=== PATIENT | male | born 1985 | race Caucasian/White ===

== ENCOUNTER 2021-06-27 11:28 | Emergency (ER) | payer SELFPAY ==
[~2021-06-27] VITALS: Ht 180.3 cm; Wt 86.0 kg
[2021-06-27] MEDS ORDERED: LIDOCAINE/EPI/TETRACAINE TOPICAL GEL 3 ML. TP ONE (14:17)
[2021-06-27 14:23] VITALS: BP 123/82
[2021-06-27] MEDS ORDERED: LIDOCAINE 2% 20 ML VIAL. IJ ONE (14:30)
[2021-06-27] MEDS ORDERED: DIPH,PERTUSS(ACELL),TET VAC/PF 0.5 ML SYRINGE. VAX IM ONE (15:00)
--- NOTE | 2021-06-27 15:14 | RAD ---
Three views Left finger: Clinical History: Reason: LACERATION WITH TABLE SAW Technique: AP view of the hand, as well as lateral and oblique collimated views of the middle finger were obtained. Comparison: None. Findings: There is a mildly distracted fracture obliquely through the tuft of the middle finger. There is no ra diopaque foreign body. There are a few small distracted bony fragments. Remaining visualized osseous structures appear normal. Impression: Acute distracted fracture of the tuft of the middle finger with multiple tiny fragments. Electronically signed by: Rik Hairston III, MD (06/27/2021 3:12 PM) [facility]
[2021-06-27] MEDS ORDERED: CEPH500C PO (16:21)
[2021-06-27] MEDS ORDERED: HYDR-2155 PO (16:21)
--- NOTE | 2021-06-27 16:22 | PHYS DOC ---
Past History Past Medical History: No Pertinent History Past Surgical History: No Surgical History Smoking: Cigarettes, Greater than 1 pack/day Alcohol Use: None General Adult EDM: Chief Complaint: LACERATION/AVULSION HPI: HPI: Is a 35-year-old male that presents today with a laceration to left third finger. Patient states today he was working at home and was using a table saw and his finger got in the way of the sought self and he said he tried to jerk a way fast enough but was unable to do so. No uncontrolled hemorrhaging noted. Patient states last tetanus shot was greater than 15 years ago. 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 Review of Systems: Review of Systems: Constitutional: Denies fever or chills Eyes: Denies change in visual acuity HENT: Denies nasal congestion or sore throat Respiratory: Denies cough or shortness of breath Cardiovascular: Denies chest pain or edema GI: Denies abdominal pain, nausea, vomiting, bloody stools or diarrhea : Denies dysuria Musculoskeletal: Laceration to left third finger Integument: Denies rash Neurologic: Denies headache, focal weakness or sensory changes Endocrine: Denies polyuria or polydipsia Lymphatic: Denies swollen glands Psychiatric: Denies depression or anxiety Current Medications: Current Meds: Current Medications Medications (Trade) Dose Ordered Sig/Shasha Start Time Stop Time Status Last Admin Dose Admin Diphtheria/ Pertussis/Tetanus Vacc (ADACEL TDap SYRINGE) 0.5 ml ONCE ONCE 06/27/21 15:00 06/27/21 15:01 DC Lidocaine HCl (Lidocaine 2%) 20 ml 1X ONCE 06/27/21 14:30 06/27/21 14:31 DC 06/27/21 14:35 20 ML Lidocaine/ Epinephrine (Let (Aoqa-Lqkptja-Medul) Gel) 3 ml STK-MED ONCE 06/27/21 14:17 06/27/21 14:17 DC Allergies: Allergies: Allergies Coded Allergies Type Severity Reaction Last Updated Verified No Known Drug Allergies 06/27/21 No Physical Exam: PE: Constitutional: Well developed, well nourished, no acute distress, non-toxic appearance. [] HENT: Normocephalic, atraumatic, bilateral external ears normal, oropharynx moist, no oral exudates, nose normal. [] Eyes: PERRLA, EOMI, conjunctiva normal, no discharge. [] Neck: Normal range of motion, no tenderness, supple, no stridor. [] Cardiovascular:Heart rate regular rhythm, no murmur [] Lungs & Thorax: Bilateral breath sounds clear to auscultation [] Abdomen: Bowel sounds normal, soft, no tenderness, no masses, no pulsatile masses. [] Skin: Warm, dry, no erythema, no rash. [] Back: No tenderness, no CVA tenderness. [] Extremities: Laceration noted to the left third finger, nailbed and half the nail is gone, cap refill sluggish, sensory diminished in the tip of the finger. Neurologic: Alert and oriented X 3, normal motor function, normal sensory function, no focal deficits noted. [] Psychologic: Affect normal, judgement normal, mood normal. [] Current Patient Data: Vital Signs: Vital Signs Date Time Temp Pulse Resp B/P (MAP) Pulse Ox O2 Delivery O2 Flow Rate FiO2 06/27/21 14:23 97.6 70 16 123/82 (96) 98 Room Air EKG: EKG: [] Radiology/Procedures: Radiology/Procedures: Indication: LACERATION TO LEFT 3RD FINGER Procedure: Digital block performed at 1430 prior to x-rays, finger cleansed with Betadine solution, finger tourniquet was applied at 1550, 6 interrupted 3-0 Ethilon sutures placed tacking down the nailbed. Finger tourniquet removed at 1605, cap refill less than 2 seconds distal to the laceration after tourniquet removed iodoform gauze placed on the wound along with tube gauze by nursing staff Total repaired wound length: 2 cm laceration through the nailbed The patient tolerated the procedure well Heart Score: C/O Chest Pain: N/A Risk Factors: Risk Factors: DM, Current or recent (<one month) smoker, HTN, HLP, family history of CAD, obesity. Risk Scores: Score 0 - 3: 2.5% MACE over next 6 weeks - Discharge Home Score 4 - 6: 20.3% MACE over next 6 weeks - Admit for Clinical Observation Score 7 - 10: 72.7% MACE over next 6 weeks - Early Invasive Strategies Course & Med Decision Making: Course & Med Decision Making Pertinent Labs and Imaging studies reviewed. (See chart for details) 1430 digital block performed on the left third finger with lidocaine 2% 7 mL [address] Jorge assessed laceration repair feels it is adequate. 1610 patient instructed to leave current dressing in place for 24 hours, remove using half hydrogen peroxide half water if needed, clean wound twice daily with antibacterial soap watching for any signs and symptoms of infection, have sutures removed in 7 to 10 days. Patient will be given a prescription for Keflex 500 mg 4 times a day for 10 full days, also hydrocodone tablets to be taken as needed severe pain also tetanus was updated while in the emergency department. Nintu Oy Disclaimer: Nintu Oy Disclaimer: This electronic medical record was generated, in whole or in part, using a voice recognition dictation system. Departure Departure: Impression: Primary Impression: Laceration of finger of left hand with damage to nail Qualified Codes: S61.313A - Laceration without foreign body of left middle finger with damage to nail, initial encounter Disposition: HOME / SELF CARE / HOMELESS Condition: STABLE Referrals: LIANNA BOWIE (PCP) Patient Instructions: Finger Fracture, Fingertip Laceration Additional Instructions: Keflex 1 tablet 4 times daily for 10 full days Tylenol and/or ibuprofen as labeled directed for mild to moderate pain Hydrocodone 1 to 2 tablets every 6 hours as needed for moderate to severe pain, use with caution may cause drowsiness and not to be used while operating heavy machinery or driving Clean wound twice daily with mild soap and water, use dressing until there is no oozing, use fingertip protector for the next 4 to 6 weeks due to the fracture that is in the fingertip Follow-up with your primary care physician in the next 7-10 days for suture removal or may return here to the emergency department for suture removal Return to the emergency department for any signs and symptoms of infection or any other concerns you may have Scripts Hydrocodone Bit/Acetaminophen (HYDROCODONE-APAP 5-325 ) 1 Each Tablet 1 TAB PO PRN Q6HRS PRN for PAIN, #20 TAB 0 Refills Prov: GUSTAVO PONCE [employer] 06/27/21 Cephalexin (KEFLEX) 500 Mg Capsule 1 CAP PO QID for FINGER LACERATION for 10 Days, #40 CAP Prov: GUSTAVO PONCE [employer] 06/27/21 GUSTAVO PONCE APRN Jun 27, 2021 16:22
== END 2021-06-27 16:40 | disposition home or self-care (01) ==
LOC: ER 11:28
DX: S61.313A Laceration without foreign body of left middle finger with damage to nail, initial encounter (principal); F17.210 Nicotine dependence, cigarettes, uncomplicated; W29.8XXA Contact with other powered hand tools and household machinery, initial encounter; Y93.89 Activity, other specified; Y92.89 Other specified places as the place of occurrence of the external cause; Y99.8 Other external cause status
CPT/HCPCS: 11760; 73140; 90471; 90715; 99285; J2001